=== PATIENT | female | born 1960 | race Caucasian/White ===

== ENCOUNTER → 2017-01-09 | Outpatient (CLI) | payer BC ==
[~2017-01-09] MED LIST: BENADRYL25 MG PO; CALCIUM 500500 M2 PO; CHEWABLE VITE W1 CTB PO; NIASPAN 500MG500 MG PO; NORCO 325 MG-51 TAB PO; PRAVACHOL10 MG PO; PREMARIN 0.60.625 M1 PO; WELLBUTRIN SR150 M1 PO; XANAX .25M0.25 MG/TA PO
== END ==
LOC: MC.RAD 07:28
DX: C50.412 Malignant neoplasm of upper-outer quadrant of left female breast (principal)

== ENCOUNTER 2017-02-03 10:41 | Outpatient (CLI) | payer BC ==
[~2017-02-03] VITALS: Ht 167.6 cm; Wt 83.1 kg
[2017-02-03 11:14] VITALS: BP 116/63; PULSE 96; TEMP 97.8
== END 2017-02-03 12:22 | disposition home or self-care (01) ==
LOC: EUO 10:41
DX: M85.88 Other specified disorders of bone density and structure, other site (principal)
CPT/HCPCS: J3489

== ENCOUNTER → 2018-01-11 | Outpatient (CLI) | payer BC | LOC: MC.RAD 08:36 | DX: Z12.31 Encounter for screening mammogram for malignant neoplasm of breast (principal); Z85.3 Personal history of malignant neoplasm of breast; Z92.3 Personal history of irradiation; Z90.12 Acquired absence of left breast and nipple ==

== ENCOUNTER 2018-02-18 15:57 | Outpatient (CLI) | payer BC ==
[~2018-02-18] VITALS: Ht 167.6 cm; Wt 87.0 kg
[2018-02-18] MEDS ORDERED: EFFEXOR-XR150 MG PO (16:18)
[2018-02-18] MEDS ORDERED: ARIMIDEX1 MG PO (16:18)
[2018-02-18 16:23] VITALS: BP 118/78; PULSE 109; TEMP 98.5
== END 2018-02-18 17:25 | disposition home or self-care (01) ==
LOC: EUO 15:57
DX: M85.88 Other specified disorders of bone density and structure, other site (principal)
CPT/HCPCS: J3489

== ENCOUNTER → 2019-01-12 | Outpatient (CLI) | payer BC ==
[~2019-01-12] MED LIST changes: +ARIMIDEX1 MG PO; +EFFEXOR-XR150 MG PO
== END ==
LOC: MC.RAD 09:30
DX: Z12.31 Encounter for screening mammogram for malignant neoplasm of breast (principal); Z98.890 Other specified postprocedural states; Z85.3 Personal history of malignant neoplasm of breast; Z92.3 Personal history of irradiation

== ENCOUNTER → 2019-02-07 | Outpatient (CLI) | payer BC | LOC: COL.RAD 08:11 | DX: K76.0 Fatty (change of) liver, not elsewhere classified (principal); Z85.3 Personal history of malignant neoplasm of breast | CPT/HCPCS: Q9967 ==

== ENCOUNTER 2019-02-10 15:45 | Outpatient (CLI) | payer BC ==
[~2019-02-10] VITALS: Ht 167.6 cm; Wt 91.2 kg
[2019-02-10 17:25] VITALS: BP 138/85; PULSE 100; TEMP 97.7
== END 2019-02-10 17:10 | disposition home or self-care (01) ==
LOC: EUO 15:45
DX: M85.88 Other specified disorders of bone density and structure, other site (principal)
CPT/HCPCS: J3489

== ENCOUNTER → 2019-05-30 | Outpatient (CLI) | payer BC ==
[~2019-05-30] VITALS: Ht 167.6 cm; Wt 91.8 kg
[2019-05-30] VITALS (10 sets, daily range): BP systolic 132–160; BP diastolic 75–93; PULSE 94–111
[~2019-05-30] MED LIST changes: +ZANTAC 150150 MG PO
--- NOTE | 2019-05-30 10:20 | NUR ---
PT BROUGHT INTO CT, POSITIONED ON THE TABLE AND MONITORING EQUIPMENT PLACED ON PT. IMAGING DONE AND SENT TO
--- NOTE | 2019-05-30 10:35 | NUR ---
PROCEDURE COMPLETED. PT ASSISTED TO WHEELCHAIR AND TAKEN TO RAD HOLDING
== END ==
LOC: COL.RAD 09:30
DX: K76.0 Fatty (change of) liver, not elsewhere classified (principal); Z85.3 Personal history of malignant neoplasm of breast

== ENCOUNTER → 2020-01-16 | Outpatient (CLI) | payer BC | LOC: MC.RAD 09:59 | DX: Z12.31 Encounter for screening mammogram for malignant neoplasm of breast (principal); Z98.890 Other specified postprocedural states; Z85.3 Personal history of malignant neoplasm of breast; Z92.3 Personal history of irradiation ==

== ENCOUNTER 2020-02-21 14:43 | Outpatient (CLI) | payer BC ==
[~2020-02-21] VITALS: Ht 167.6 cm; Wt 72.0 kg
[2020-02-21 15:15] VITALS: BP 130/86; PULSE 100; TEMP 97
== END 2020-02-21 15:59 | disposition home or self-care (01) ==
LOC: EUO 14:43
DX: M85.88 Other specified disorders of bone density and structure, other site (principal); Z79.899 Other long term (current) drug therapy
CPT/HCPCS: J3489

== ENCOUNTER → 2021-01-16 | Outpatient (CLI) | payer BC ==
[~2021-01-16] MED LIST changes: +PRAVACHOL 20MG20 MG PO; -PRAVACHOL10 MG PO
== END ==
LOC: MC.RAD 09:16
DX: Z12.31 Encounter for screening mammogram for malignant neoplasm of breast (principal); C50.412 Malignant neoplasm of upper-outer quadrant of left female breast; Z98.82 Breast implant status; Z90.12 Acquired absence of left breast and nipple; Z98.890 Other specified postprocedural states

== ENCOUNTER 2021-03-05 15:59 | Outpatient (CLI) | payer BC ==
[~2021-03-05] VITALS: Ht 167.6 cm; Wt 91.6 kg
[2021-03-05 16:30] VITALS: BP 136/90; PULSE 116; TEMP 98
== END 2021-03-05 17:17 | disposition home or self-care (01) ==
LOC: EUO 15:59
DX: M81.8 Other osteoporosis without current pathological fracture (principal)
CPT/HCPCS: J3489

== ENCOUNTER → 2022-02-17 | Outpatient (CLI) | payer OTHER | LOC: MC.RAD 14:28 | DX: Z12.31 Encounter for screening mammogram for malignant neoplasm of breast (principal); Z85.3 Personal history of malignant neoplasm of breast; Z92.3 Personal history of irradiation; Z98.890 Other specified postprocedural states ==

== ENCOUNTER → 2023-02-18 | Outpatient (CLI) | payer OTHER | LOC: MC.RAD 08:54 | DX: Z12.31 Encounter for screening mammogram for malignant neoplasm of breast (principal); Z85.3 Personal history of malignant neoplasm of breast; Z90.12 Acquired absence of left breast and nipple; Z92.3 Personal history of irradiation ==

== ENCOUNTER 2024-03-01 13:43 | Emergency (ER) | payer OTHER ==
[~2024-03-01] VITALS: Ht 167.6 cm; Wt 84.1 kg
[2024-03-01 14:03] VITALS: TEMP 97.7
[2024-03-01] MEDS ORDERED: NS 1,000 ML IV SCH (14:15)
[2024-03-01] MEDS ORDERED: Acetaminophen 325 MG TAB PO ONE (14:45)
[2024-03-01 15:10] LABS: HEMATOCRIT 41.4 % (37.0-47.0); HEMOGLOBIN 13.4 g/dl (12.5-16.0); MEAN CELL VOLUME 86 fl (80.0-100.0); MEAN CORPUSCULAR HEMOGLOBIN 28 pg (27-31); MEAN CORPUSCULAR HGB CONC 32 g/dl (33.0-37.0); MEAN PLATELET VOLUME 9.9 fl (7.4-10.4); PLATELET COUNT 287 K/mm3 (130-400); RED BLOOD COUNT 4.81 M/mm3 (4.10-5.30); REDCELL DISTRIBUTION WIDTH-CV 14.4 % (11.5-14.5)
[2024-03-01] MEDS ORDERED: Azithromycin 250 MG TAB PO ONE (15:15)
[2024-03-01] MEDS ORDERED: cefTRIAXone 2 G in Water For Injection,Sterile 20 ML IV ONE (15:15)
[2024-03-01 15:28] LABS: BILIRUBIN,TOTAL 0.8 mg/dL (0.2-1.2); CALCIUM 9.5 mg/dL (8.4-10.2); CREATININE, serum 0.85 mg/dL (0.57-1.11); POTASSIUM 4.1 mEq/L (3.5-4.5); TOTAL PROTEIN 8.4 g/dl (6.2-8.1)
[2024-03-01 15:40] LABS: BAND 6 % (0-10); EOSINOPHIL 1 % (0-4); HYPOCHROMIA 1+; LYMPHOCYTE 14 % (20.0-51.0); NEUTROPHILS 69 % (42.0-75.2)
[2024-03-01 15:41] LABS: PLATELET ESTIMATE NORMAL (NORMAL)
[2024-03-01 15:44] LABS: COLLECTION METHOD CLEAN CATCH
[2024-03-01 15:52] LABS: URINE APPEARANCE CLEAR (CLEAR/HAZY); URINE BLOOD NEGATIVE (NEGATIVE); URINE COLOR YELLOW (YELLOW); URINE GLUCOSE NEGATIVE (NEGATIVE); URINE KETONE NEGATIVE (NEGATIVE); URINE NITRATE NEGATIVE (NEGATIVE); URINE PROTEIN(semi-quant) TRACE (NEGATIVE)
[2024-03-01 16:23] LABS: URINE RBC 0-2 /hpf (0-2)
[2024-03-01] MEDS ORDERED: OMNICEF 300MG300 MG PO (16:27)
[2024-03-01] MEDS ORDERED: ZITHROMAX Z PA250 MG PO (16:27)
[2024-03-01 17:39] VITALS: BP 142/79; PULSE 105
== END 2024-03-01 17:39 | disposition home or self-care (01) ==
LOC: COL.ER 13:43
PROVIDERS: Family Medicine
DX: J18.9 Pneumonia, unspecified organism (principal); E86.0 Dehydration; R00.0 Tachycardia, unspecified
CPT/HCPCS: J0696; J7030